=== PATIENT | female | born 2000 | race Two or more races ===

== ENCOUNTER 2025-01-06 21:26 | Observation (INO) ==
[2025-01-06 22:03] LABS: Appearance Urine Clear (Clear); Bacteria Urine Automated None Seen (None Seen); Glucose Urine UA 1+ (Negative); RBC Urine Automated 0-2 /hpf (0-2); WBC Urine Automated 0-5 /hpf (0-5)
[2025-01-06 22:09] LABS: Hematocrit (blood only) 42.2 % (37.0-47.0); Hemoglobin 13.8 g/dL (12.0-16.0); Immature Granulocytes # (auto) 0.03 K/uL (0.01-0.20); Immature Granulocytes % (auto) 0.4 %; Mean Corpuscular Hemoglobin 27.2 pg (25.0-34.0); Mean Corpuscular Volume 83.2 fL (80.0-100.0); Platelet Count 217 K/uL (130-400); RDW Standard Deviation 41.0 fL (36.4-46.3); Red Blood Count 5.07 M/uL (4.20-5.40); White Blood Count 7.36 K/ul (4.8-10.8)
[2025-01-06 22:27] LABS: Alanine Aminotransferase 13.0 U/L (7-52); Albumin Globulin Ratio 1.1 (0.9-2); Albumin Level 3.9 gm/dl (3.4-5.0); Alkaline Phosphatase 39.0 U/L (34-104); Anion Gap 8.0 (3-11); Bilirubin,Total 0.4 mg/dl (0.2-1.0); Blood Urea Nitrogen 18.0 mg/dl (6-23); Calcium 9.2 mg/dl (8.6-10.3); Carbon Dioxide 27.0 mmol/L (21-32); Chloride 103.0 mmol/L (98-107); Creatinine Clr Calc Pharmacy 48.9 ml/min; Globulin 3.5 gm/dl (2.5-4.0); Glucose 106.0 mg/dl (70-99(Fasting)); Potassium 3.2 mmol/L (3.5-5.1); Sodium 138.0 mmol/L (136-145); Total Protein 7.4 gm/dl (6.0-8.3)
[2025-01-06] MEDS: SODIUM CHLORIDE 0.9% 1,000 ML IV SCH (22:31)
[2025-01-06] MEDS: ONDANSETRON INJ 2 MG/ML 2 ML VIAL IV STA (22:35)
--- NOTE | 2025-01-06 23:20 | Emergency Department Note ---
Impression & Plan Pyelonephritis, CARINE (acute kidney injury) Admit to the [facility] ED Provider Note NAME: PATSY RAMOS AGE: 24 SEX: Female INFORMANT: Patient ED PROVIDER(S): Zunilda Hughes DO CHIEF COMPLAINT: Urinary frequency; vomiting, weakness PLAN: Disposition: Admit to the [facility] MEDICAL DECISION MAKING: This is a 24-year-old female patient who developed urinary symptoms, vomiting and weakness 48 hours ago. Patient states that she was so weak that she was unable to get out of bed to come here to the emergency department. Patient has history of UTIs. In fact, she finished amoxicillin 2 weeks ago. When her symptoms started 2 days ago, she tried taking Tylenol and Azo without any relief. She developed diarrhea, decreased appetite and significant lower abdominal cramping. Patient was treated with IV cefepime and saline along with multiple doses of Zofran to control her nausea and vomiting. Laboratory studies showed no leukocytosis or anemia. Renal function has worsened with a creatinine of 1.43. She is slightly hypokalemic with a potassium of 3.2. Patient does show signs of a urinary tract infection and CT scan shows bilateral pyelonephritis. I discussed the case with the [facility] team and they will evaluate for further inpatient care. 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 Vital Signs: reviewed and remarkable for tachycardia Chronic Medical/Social Conditions affecting care: frequent UTIs Differential Diagnosis: cystitis, pyelonephritis, obstructive uropathy, possible kidney stone Diagnostics, independently interpreted by me: Cardiac Monitoring: normal sinus rhythm at a rate of 108 Imaging studies: CT scan of the abdomen/pelvis: As per Imbro HPI: 24 year old Female arrives for evaluation of urinary frequency, vomiting and weakness. female patient who developed urinary symptoms, vomiting and weakness 48 hours ago. Patient states that she was so weak that she was unable to get out of bed to come here to the emergency department. Patient has history of UTIs. In fact, she finished amoxicillin 2 weeks ago. PAST MEDICAL HISTORY: frequent UTIs, SOCIAL HISTORY: patient is in her fifth year at [employer] MEDICATIONS: AZO ALLERGIES: none VITALS: See Below PHYSICAL EXAMINATION: HEENT: Head - normocephalic and atraumatic. Pupils are equal, round, and reactive to light. Extraocular eye muscles are intact, and sclera are anicteric. Nose - moist nasal mucosa without discharge. Mouth - moist buccal mucosa. Oropharynx is nonerythematous and there is no tonsillar exudate or edema noted. Neck: Supple; no cervical lymphadenopathy or nuchal rigidity Heart: Tachycardic rate and regular rhythm There is a normal S1 and S2 with no murmurs, clicks, or gallops appreciated. Lungs: Clear to auscultation bilaterally with no wheezes, rales, or rhonchi. Abdomen: Soft, moderate discomfort with palpation over the right and left lower quadrants of the abdomen. Some mild discomfort in the suprapubic area. There are no palpable pulsatile masses or hepatosplenomegaly. There is no guarding, rigidity, or rebound noted. Extremities: No evidence of cyanosis, clubbing, or edema. There are easily palpable peripheral pulses. Skin: warm and dry with good turgor and no rashes. 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 A complete history and physical was performed. Order was placed for continuous cardiac monitoring. The patient was in a sinus tachycardia at a rate of 108. Patient was bolused with IV normal saline solution and given a dose of IV Zofran. Patient went for CT scan of the abdomen/pelvis to rule out acute pyelonephritis. Upon returning from radiology, the patient had blood cultures obtained and was started on IV cefepime. She continued to complain of nausea and was given another dose of IV Zofran. I discussed the case with the [facility] Hospitalist and they will evaluate for further inpatient care for pyelonephritis and acute CARINE Past Med/Surg History Problem List (Updated 01/07/25 @ 18:27 by Zunilda Hughes DO) Pyelonephritis (Acute) Hypokalemia due to excessive gastrointestinal loss of potassium CARINE (acute kidney injury) (Acute) Medical History No pertinent past medical history Social History Smoking Status: Former smoker Tobacco Type: E-cigarettes / Vaping Hx Alcohol Use: No Hx Substance Use: No Preferred Language: Israeli Communication Ability: Effective Chief Financial Officer Required: No Beliefs That Will Affect Care: None Current Living Situation: Alone Current Living Situation Comment: student housing Feels Safe at Home: Yes Safety Concerns: Feels Safe At This Time Assistive Devices: None Allergies Allergies Allergy/AdvReac Type Severity Reaction Status Date / Time No Known Allergies Allergy Unverified 01/06/25 22:08 Home Meds Home Medications Medication Instructions Recorded Confirmed drospirenone 3 mg-ethinyl 0.02 - 3 tab PO DAILY 01/07/25 01/07/25 estradiol 0.02 mg tablet (Vestura (28)) Previous Rx's Medication Instructions Recorded acetaminophen 325 mg tablet 650 mg (2 x 325 mg) PO Q4H PRN 01/07/25 pain #30 tabs cefpodoxime 200 mg tablet 200 mg PO BID #18 tabs 01/07/25 ondansetron 4 mg disintegrating 4 mg PO Q8H PRN Nausea #9 tabs 01/07/25 tablet Results & Data (ED) Vital Signs Vital Signs - 24 hr 01/06/25 21:30 01/06/25 21:52 01/06/25 22:29 Temperature 37 C Temperature Source Oral Pulse Rate 110 H 89 Pulse Rate [Left Apical] Pulse Rate [Right Finger] 93 H Pulse Rate from SpO2 Sensor Pulse Rhythm Regular Pulse Rhythm [Right Finger] Regular Pulse Strength Normal Pulse Strength [Right Finger] Respiratory Rate 18 18 Respiratory Effort / Characteristics Non-Labored Spontaneous Non-Labored Respiratory Depth Normal Normal Respiratory Pattern Regular Regular Blood Pressure 127/84 Blood Pressure [Right Arm] 132/91 Blood Pressure Mean 98 Blood Pressure Mean [Right Arm] 104 Blood Pressure Position [Right Arm] Pulse Oximetry 99 95 Oxygen Delivery Method Room Air Room Air Sepsis Recent Fever Within 48 Hours No Sepsis New/Unexplained Change in Mental Status No Sepsis Action Taken by Nursing No Action Required 01/06/25 22:30 01/06/25 23:00 01/06/25 23:00 Temperature Temperature Source Pulse Rate 88 Pulse Rate [Left Apical] 91 H Pulse Rate [Right Finger] Pulse Rate from SpO2 Sensor Pulse Rhythm Pulse Rhythm [Right Finger] Pulse Strength Pulse Strength [Right Finger] Respiratory Rate 18 18 Respiratory Effort / Characteristics Non-Labored Spontaneous Respiratory Depth Normal Respiratory Pattern Regular Blood Pressure 105/84 105/84 Blood Pressure [Right Arm] 127/75 Blood Pressure Mean 91 93 Blood Pressure Mean [Right Arm] 92 Blood Pressure Position [Right Arm] Pulse Oximetry 100 100 Oxygen Delivery Method Room Air Room Air Sepsis Recent Fever Within 48 Hours Sepsis New/Unexplained Change in Mental Status Sepsis Action Taken by Nursing 01/06/25 23:45 01/07/25 00:00 01/07/25 00:30 Temperature Temperature Source Pulse Rate 75 90 91 H Pulse Rate [Left Apical] Pulse Rate [Right Finger] Pulse Rate from SpO2 Sensor 89 90 Pulse Rhythm Pulse Rhythm [Right Finger] Pulse Strength Pulse Strength [Right Finger] Respiratory Rate 18 18 16 Respiratory Effort / Characteristics Respiratory Depth Respiratory Pattern Blood Pressure 121/64 115/86 121/79 Blood Pressure [Right Arm] Blood Pressure Mean 87 95 93 Blood Pressure Mean [Right Arm] Blood Pressure Position [Right Arm] Pulse Oximetry 99 98 100 Oxygen Delivery Method Sepsis Recent Fever Within 48 Hours Sepsis New/Unexplained Change in Mental Status Sepsis Action Taken by Nursing 01/07/25 01:00 01/07/25 01:00 Temperature Temperature Source Pulse Rate 90 Pulse Rate [Left Apical] Pulse Rate [Right Finger] 85 Pulse Rate from SpO2 Sensor 86 Pulse Rhythm Pulse Rhythm [Right Finger] Regular Pulse Strength Pulse Strength [Right Finger] Normal Respiratory Rate 19 20 Respiratory Effort / Characteristics Non-Labored Spontaneous Respiratory Depth Normal Respiratory Pattern Regular Blood Pressure 107/65 Blood Pressure [Right Arm] 107/65 Blood Pressure Mean 79 Blood Pressure Mean [Right Arm] 79 Blood Pressure Position [Right Arm] Lying Pulse Oximetry 98 97 Oxygen Delivery Method Room Air Sepsis Recent Fever Within 48 Hours Sepsis New/Unexplained Change in Mental Status Sepsis Action Taken by Nursing Laboratory Data 01/06/25 21:56 01/07/25 07:05 Lab Results 01/06/25 01/06/25 01/07/25 Range/Units 21:44 21:56 01:29 WBC 7.36 (4.8-10.8) K/ul RBC 5.07 (4.20-5.40) M/uL Hgb 13.8 (12.0-16.0) g/dL Hct 42.2 (37.0-47.0) % MCV 83.2 (80.0-100.0) fL MCH 27.2 (25.0-34.0) pg MCHC 32.7 (32.0-36.0) g/dL RDW Std Deviation 41.0 (36.4-46.3) fL RDW Coeff of Kaylee 13.5 (11.5-14.5) % Plt Count 217 (130-400) K/uL MPV 11.7 (9.4-12.4) fL Immature Gran % (Auto) 0.4 % Neut % (Auto) 70.1 % Lymph % (Auto) 21.1 % [place] % (Auto) 7.6 % Eos % (Auto) 0.4 % Baso % (Auto) 0.4 % Neut # (Auto) 5.16 (1.40-6.50) K/uL Lymph # (Auto) 1.55 (1.20-3.40) K/uL [place] # (Auto) 0.56 (0.11-0.59) K/uL Eos # (Auto) 0.03 (0.00-0.50) K/uL Baso # (Auto) 0.03 (0.00-0.20) K/uL Immature Gran # (Auto) 0.03 (0.01-0.20) K/uL Sodium 138 (136-145) mmol/L Potassium 3.2 L (3.5-5.1) mmol/L Chloride 103 (98-107) mmol/L Carbon Dioxide 27 (21-32) mmol/L Anion Gap 8 (3-11) BUN 18 (6-23) mg/dl Creatinine 1.43 H (0.6-1.2) mg/dl Est Cr Clr Drug Dosing 48.9 ml/min eGFR 52.85 BUN/Creatinine Ratio 12.6 (10-20) Glucose 106 H (70-99(Fasting)) mg/dl Lactate 0.9 (0.4-2.0) mmol/L Calcium 9.2 (8.6-10.3) mg/dl Magnesium 2.1 (1.7-2.4) mg/dl Total Bilirubin 0.4 (0.2-1.0) mg/dl AST 17 (13-39) U/L ALT 13 (7-52) U/L Alkaline Phosphatase 39 (34-104) U/L Total Protein 7.4 (6.0-8.3) gm/dl Albumin 3.9 (3.4-5.0) gm/dl Globulin 3.5 (2.5-4.0) gm/dl Albumin/Globulin Ratio 1.1 (0.9-2) Procalcitonin 0.14 (0-0.5) ng/ml Urine Color Dark Yellow Urine Appearance Clear (Clear) Urine pH 5.5 (4.5-7.5) Ur Specific Lipan 1.013 (1.000-1.030) Urine Protein Trace H (Negative) Urine Glucose (UA) 1+ H (Negative) Urine Ketones Negative (Negative) Urine Blood Negative (Negative) Urine Nitrite Positive A (Negative) Urine Bilirubin Negative (Negative) Urine Urobilinogen Negative (Negative) Ur Leukocyte Esterase Negative (Negative) Urine WBC (Auto) 0-5 (0-5) /hpf Urine RBC (Auto) 0-2 (0-2) /hpf U Hyaline Cast (Auto) 3-5 H (0-2) /lpf U Epithel Cells (Auto) 6-10 H (0-2) /hpf Urine Bacteria (Auto) None Seen (None Seen) Urine Test Negative (Negative) Urine Comment Administered Medications Ceftriaxone Sodium (Rocephin) 2,000 mg in 50 mls @ 100 mls/hr IV Q24H OMARI Stop: 01/14/25 12:59 Last Infusion: 01/07/25 13:04 Dose: Infused Documented By: Admin: 01/07/25 12:34 Dose: 100 mls/hr Documented By: austin Parenteral Electrolytes (Plasma-Lyte A Ph 7.4) 1,000 mls @ 125 mls/hr IV .Q8H OMARI Stop: 01/07/25 20:16 Last Admin: 01/07/25 14:07 Dose: 125 mls/hr Documented By: austin Infusion: 01/07/25 14:00 Dose: Infused Documented By: austin Admin: 01/07/25 06:00 Dose: 125 mls/hr Documented By: DAYAN Miscellaneous (Order Awaiting Action) 1 each N/A QS OMARI Stop: 02/06/25 07:59 Last Admin: 01/07/25 15:05 Dose: Not Given Documented By: Admin: 01/07/25 08:02 Dose: Not Given Documented By: ANDREW Morphine Sulfate (Morphine Sulfate 4 Mg/Ml 1 Ml Carp\Vial) 4 mg IV Q6H PRN PRN Reason: Severe Pain (Scale 7, 8, 9,10) Stop: 01/21/25 04:16 Last Admin: 01/07/25 04:49 Dose: 4 mg Documented By: DAYAN Discontinued Medications Sodium Chloride (Nss) 1,000 mls @ 999 mls/hr IV .Q1H1M OMARI Stop: 01/07/25 00:30 Last Infusion: 01/07/25 00:45 Dose: Infused Documented By: Admin: 01/06/25 23:44 Dose: 999 mls/hr Documented By: Infusion: 01/06/25 23:32 Dose: Infused Documented By: Admin: 01/06/25 22:31 Dose: 999 mls/hr Documented By: JC Sodium Chloride (Nss) 500 mls @ 125 mls/hr IV .Q4H OMARI Stop: 01/07/25 05:29 Last Infusion: 01/07/25 05:49 Dose: Infused Documented By: Admin: 01/07/25 01:35 Dose: 125 mls/hr Documented By: NAW Cefepime HCl (Maxipime 2000mg) 2,000 mg in 20 mls @ 5 mls/min IV NOW STA; Protocol Stop: 01/07/25 01:23 Last Admin: 01/07/25 01:34 Dose: 5 mls/min Documented By: NAW Potassium Chloride (K Claudio / Wtr) 10 meq in 100 mls @ 100 mls/hr IV Q1H OMARI Stop: 01/07/25 05:44 Last Infusion: 01/07/25 06:49 Dose: Infused Documented By: austin Admin: 01/07/25 05:49 Dose: 100 mls/hr Documented By: Infusion: 01/07/25 05:46 Dose: Infused Documented By: Admin: 01/07/25 04:46 Dose: 100 mls/hr Documented By: Infusion: 01/07/25 04:34 Dose: Infused Documented By: Admin: 01/07/25 03:34 Dose: 100 mls/hr Documented By: ALEKSANDAR Acetaminophen (Ofirmev) 1,000 mg in 100 mls @ 400 mls/hr IV NOW STA Stop: 01/07/25 03:00 Last Infusion: 01/07/25 03:33 Dose: Infused Documented By: Admin: 01/07/25 02:52 Dose: 400 mls/hr Documented By: Ondansetron HCl (Ondansetron Inj 2 Mg/Ml 2 Ml Vial) 4 mg IV NOW STA Stop: 01/06/25 22:32 Last Admin: 01/06/25 22:35 Dose: 4 mg Documented By: DM Ondansetron HCl (Ondansetron Inj 2 Mg/Ml 2 Ml Vial) 4 mg IV NOW STA Stop: 01/07/25 02:10 Last Admin: 01/07/25 02:14 Dose: 4 mg Documented By: Discharge Plan Visit Data Chief Complaint: Illness Stated Complaint: WEAKNESS,N/V,DIZZINESS,ABD PAINS ED Provider: Zunilda Hughes Discharge Problem: Pyelonephritis, CARINE (acute kidney injury) Patient Disposition: Admitted As Inpatient Condition: Serious Discharge Instructions Interventions: ED Discharge Assessment Last Done: 01/07/25 03:58
--- NOTE | 2025-01-07 01:07 | CT Scan Report ---
Exam(s): CT ABDOMEN + PELVIS Without Contrast EXAM: CT Abdomen and Pelvis Without Intravenous Contrast CLINICAL HISTORY: eval for stone or pyelo. OTHER: Other Notes: EVAL FOR STONE TECHNIQUE: Axial computed tomography images of the abdomen and pelvis without intravenous contrast. CTDI is 7 mGy and DLP is 320.53 mGy-cm. Automated exposure control was utilized for the study. A dose lowering technique was utilized adhering to the principles of ALARA. COMPARISON: No relevant prior studies available. FINDINGS: Limitations: There is respiratory artifact, which degrades image quality on multiple image slices. Lung bases: Unremarkable. No mass. No consolidation. ABDOMEN: Liver: Unremarkable. Gallbladder and bile ducts: Unremarkable. No calcified stones. No ductal dilation. Pancreas: The pancreas is grossly unremarkable, accounting for respiratory artifact. No ductal dilation. Spleen: Unremarkable. No splenomegaly. Adrenals: Unremarkable. No mass. Kidneys and ureters: There is new bilateral perinephric fat stranding noted, left slightly greater than right. No hydronephrosis or obstructive ureteral stones. No ureteral stones. Stomach and bowel: No evidence for bowel obstruction. Evaluation of the bowel mucosa is limited without contrast and respiratory artifact. Mild stool burden. PELVIS: Appendix: No findings to suggest acute appendicitis. Bladder: The bladder is [id number] distended. No bladder stones or bladder wall thickening. Reproductive: Unremarkable as visualized. ABDOMEN and PELVIS: Intraperitoneal space: Unremarkable. No free air. No significant fluid collection. Bones/joints: No acute osseous abnormality. No abnormal alignment. Soft tissues: Unremarkable. Vasculature: Unremarkable. No abdominal aortic aneurysm. Lymph nodes: Unremarkable. No enlarged lymph nodes. IMPRESSION: There is new bilateral perinephric fat stranding noted, left slightly greater than right. No hydronephrosis or obstructive ureteral stones. The findings are suspicious for pyelonephritis. Please correlate with clinical and urinalysis findings. Electronically signed by: Magdiel Peck MD 01/07/25 01:06 AM
[2025-01-07] MEDS: CEFEPIME 2000MG 2,000 MG/20 ML SYR IV STA (01:34)
[2025-01-07] MEDS: SODIUM CHLORIDE 0.9% 500 ML IV SCH (01:35)
[2025-01-07] MEDS: ONDANSETRON INJ 2 MG/ML 2 ML VIAL IV STA (02:14)
--- NOTE | 2025-01-07 02:43 | History & Physical Report ---
Date of Service January 07, 2025 Assessment & Plan (1) Pyelonephritis: (2) Nausea & vomiting: (3) CARINE (acute kidney injury): (4) Hypokalemia due to excessive gastrointestinal loss of potassium: Plan Patient is a 24-year-old female with a past medical history of recurrent UTIs. She presented due to 2 days of increasing urinary frequency, dysuria, weakness, nausea, vomiting, poor appetite, bilateral lower abdominal and flank pain, and watery diarrhea found to have bilateral pyelonephritis and an CARINE. Patient was treated for UTI with amoxicillin starting 12/15 recently. #bilateral pyelonephritis noted on abdomen and pelvis CT. UA positive for n itrates, 3-5 hyaline cast, no bacteria seen. Nonseptic presentationno leukocytosis, VSS, lactate negative, procalcitonin negative. Previous cultures have grown E. coli resistant to ampicillin, quinolones, and Bactrim Started on cefepime in the ED, transition to Rocephin pain control with Tylenol as needed, morphine 2/4 mg IV for breakthrough pain Avoid NSAIDs with CARINE - Zofran prn - consult urology given patient reporting ~ 6 UTIs/yr and has not yet established care with urology - follow urine and blood cultures - trend CBC #CARINE/hypokalemia - likely 2/2 dehydration, GI losses, and acute infection above. Cr 0.79 -> 1.43, K+ 3.2. - given 2L NSS bolus in ED + NSS @ 125 ml/hr x 500 mL - continue fluid resuscitation with plasmalyte @ 125 ml/hr x2L - 3 bags k rider ordered - treat infection - trend BMP #diarrhea - reports watery x1 day after recent amoxicillin use. - stool cultures including c diff ordered VTE ppx: SCDs, low risk Dispo: med surg, obs Admission and Anticipated Discharge Date Admission Date: 01/07/25 History of Present Illness Chief Complaint: illness Primary Care Provider: [facility] Patient is a 24-year-old female with a past medical history of recurrent UTIs. She presented due to 2 days of increasing urinary frequency, dysuria, weakness, nausea, vomiting, poor appetite, bilateral lower abdominal and flank pain, and watery diarrhea found to have bilateral pyelonephritis and an CARINE. Patient was treated for UTI with amoxicillin starting 12/15 recently. Patient seen at bedside. She stated she used to have approximately 1-2 UTIs per year when she was a child and then when she came to college and became sexually active she now develops approximately 6/year. Her most recent was treated on 12/15 with amoxicillin for 7 days which she stated she took the full course of. Previous cultures have grown E. coli resistant to ampicillin, quinolones, and Bactrim. Patient stated since Saturday she had increase in urinary frequency and burning so she thought this was a regular UTI and took Azo and Tylenol. She then took a nap and woke up with significant vomiting and dry heaving which she stated was orange in color from the Azo however denies any hematemesis. She then developed significant weakness and poor appetite unable to tolerate much p.o. intake. She had bilateral lower abdominal cramping across her bladder region which extended up to bilateral flanks. Pain is currently 7/10 at bedside. She also endorses watery diarrhea that began today, denies any hematochezia. She felt like she was warm earlier however has been afebrile in the ED. She denies nicotine or alcohol use. Her only home medication is her control. Allergies Allergy/AdvReac Type Severity Reaction Status Date / Time No Known Allergies Allergy Unverified 01/06/25 22:08 Home Medications Medication Instructions Recorded Confirmed Type acetaminophen 325 mg tablet 650 mg (2 x 325 mg) PO Q4H PRN 01/07/25 Rx pain #30 tabs cefpodoxime 200 mg tablet 200 mg PO BID #18 tabs 01/07/25 Rx drospirenone 3 mg-ethinyl 0.02 - 3 tab PO DAILY 01/07/25 01/07/25 History estradiol 0.02 mg tablet (Vestura (28)) ondansetron 4 mg disintegrating 4 mg PO Q8H PRN Nausea #9 tabs 01/07/25 Rx tablet Past Med/Surg History Problem List (Updated 01/07/25 @ 18:27 by Zunilda Hughes DO) Pyelonephritis (Acute) Hypokalemia due to excessive gastrointestinal loss of potassium CARINE (acute kidney injury) (Acute) Medical History No pertinent past medical history Social History Smoking Status: Former smoker Tobacco Type: E-cigarettes / Vaping Hx Alcohol Use: No Hx Substance Use: No Preferred Language: Portuguese Communication Ability: Effective Bill Distributor Required: No Beliefs That Will Affect Care: None Current Living Situation: Alone Current Living Situation Comment: student housing Feels Safe at Home: Yes Assistive Devices: None Review of Systems Review of Systems: see HPI Physical Exam Physical Exam: The patient is awake, alert and oriented 3, well developed and well nourished, normocephalic and atraumatic, in no acute distress. Non-toxic appearing. HEENT- EOMI, mucous membranes moist. Hearing grossly intact. Heart-normal S1 and S2. No murmurs, rubs or gallops. Lungs-clear bilaterally, no respiratory distress, no accessory muscle use. Abdomen-normal bowel sounds and soft. No ascites noted. Tender to mid lower abdomen and bl flanks. Extremities- no clubbing, cyanosis, or edema. Rheumatologic-normal range of motion. Psychiatric-normal affect. Results & Data Results & Data Vital Signs (Past 12 Hours) Vital Signs Temp Pulse Pulse Pulse Resp BP BP 01/07/25 01:00 85 20 107/65 01/07/25 01:00 90 19 107/65 01/07/25 00:30 91 H 16 121/79 01/07/25 00:00 90 18 115/86 01/06/25 23:45 75 18 121/64 01/06/25 23:00 105/84 01/06/25 23:00 88 18 105/84 01/06/25 22:30 91 H 18 127/75 01/06/25 22:29 89 01/06/25 21:52 93 H 18 132/91 01/06/25 21:30 37 C 110 H 18 127/84 Pulse Ox O2 Del Method 01/07/25 01:00 97 Room Air 01/07/25 01:00 98 01/07/25 00:30 100 01/07/25 00:00 98 01/06/25 23:45 99 01/06/25 23:00 01/06/25 23:00 100 Room Air 01/06/25 22:30 100 Room Air 01/06/25 22:29 01/06/25 21:52 95 Room Air 01/06/25 21:30 99 Room Air Laboratory Results Reviewed CBC, CMP, lactate, procalcitonin, UA Ordered magnesium Diagnostic Findings reviewed AP CT Medications Administered 802 L NSS bolus, NSS at 125 mL/hour x 500 mL, Zofran x 2, cefepime 2G IV Code Status & VTE Plan Code Status full VTE Prophylaxis Plan VTE Prophylaxis will be ordered: Yes Supervising Physician Co-Signing Physician Notes Patient seen and examined, chart reviewed, case discussed with ALMA Jimenez and I agree with the assessment and plan as above. Patient is a 24yo female presenting with recurrent UTI. She has had multiple UTIs in the past. Has had cultures with some resistant bacteria (10/2023 E. coli with Amp/Sulbact/Cipro/Levaquin/Bactrim resistance). Patient reports keeping hydrated, has tried cranberry products, does try to urinate after sex. However, with recurrent UTIs. Has been mentioned to her that her symptoms may be secondary to interstitial cystitis? Has never seen Urology or had a cystoscopy performed On exam she is afebrile, HD stable, resting comfortably, non-toxic in appearance +Suprapubic discomfort, no CVA tenderness Remainder of exam is unremarkable Labs and images reviewed Assessment/Plan -Await urine culture -Ceftriaxone for now -Urology consultation appreciated - to establish care, possible cystoscopy in the future to assess for anatomic abnormalities, interstitial cystitis or other reasons for recurrent UTIs -Remainder as above PG Care Time/CCT Total # of Minutes Spent Total Time Spent with Patient: Total time spent is greater than 50% in coordination of care (as documented) at patient's floor/unit and/or counseling patient: Coding Level of Care Code 99335 INT INP/OBS CARE 3/75MIN Diagnoses Pyelonephritis N12 Nausea & vomiting R11.2 CARINE (acute kidney injury) N17.9 Hypokalemia due to excessive gastrointestinal loss of potassium E87.6
[2025-01-07] MEDS: ACETAMINOPHEN 1,000 MG/100 ML VIAL IV STA (02:52)
[2025-01-07 03:01] LABS: Magnesium 2.1 mg/dl (1.7-2.4)
[2025-01-07] MEDS: POTASSIUM CHLORIDE / WTR 10 MEQ/100 ML PLCT IV SCH (03:34)
[2025-01-07 04:00] VITALS: O2SAT 99
[2025-01-07] MEDS ORDERED: MoRPHine SULFATE 2 MG/ML CARP IV PRN (04:17)
[2025-01-07] MEDS ORDERED: ONDANSETRON INJ 2 MG/ML 2 ML VIAL IV PRN (04:17)
[2025-01-07] MEDS ORDERED: MELATONIN 3 MG TAB PO PRN (04:17)
[2025-01-07] MEDS ORDERED: DOCUSATE SODIUM 100 MG CAP PO PRN (04:17)
[2025-01-07] MEDS ORDERED: ACETAMINOPHEN 325 MG TAB PO PRN (04:17)
[2025-01-07] MEDS: MoRPHine SULFATE 4 MG/ML 1 ML CARP\\VIAL IV PRN (04:49)
--- NOTE | 2025-01-07 05:07 | Urology Consultation ---
Date of Consultation January 07, 2025 Assessment & Plan (1) Pyelonephritis: Patient has been admitted on the hospitalist service. Urologic recommendations are as follows: Appears of the patient clinically and radiographically may have evidence of pyelonephritis Patient has been started on antibiotics in the form of Rocephin. Appropriate cultures have been sent and can be used to tailor further antibiotic therapy as cultures become available I suspect the patient's acute kidney injury is due to an element of dehydration from poor oral intake and will hopefully resolve with hydration with intravenous fluids There is no obvious obstruction or anatomic abnormalities to explain the patient's recurrent urinary tract infections on her available imaging. I did discuss with the patient that may be beneficial to establish care with urology locally and consideration can be given to performing cystoscopy at some point to see if she has any anatomic abnormalities or other identifiable factors that are contributing to her recurrent urinary tract infections (I do suspect that this procedure can likely be completed as an outpatient) Would recommend monitoring the patient postvoid residuals to ensure she is not retaining urine Additional recommendations are forthcoming based on her clinical course as it unfolds History of Present Illness Reason for Consultation: Recurrent urinary tract infections Attending Physician: Amarilis Ortiz DO History of Present Illness 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 The patient's current presentation she notes she has had 2 days of urinary frequency along with dysuria. She reports that she has had nausea and vomiting and poor oral intake. She also notes that she has had bilateral flank pain. To the best of her knowledge she has never had any kidney stones or passed any kidney stones. She does report some intermittent hematuria from time to time. The patient does note that she has had multiple urinary tract infections over the past year. She says that she has seen an [employer] specialist who informed the patient she may have interstitial cystitis. She notes that she has never received a urologist. Since arrival to the hospital the patient has had labs and imaging which I independently reviewed. A CT scan of the abdomen pelvis showed the patient had bilateral perinephric fat stranding which appeared to be greater on the right. There is no hydronephrosis or obstructive kidney stones noted. Interpreting radiologist felt that this likely represented a pyelonephritis. CBC revealed white blood cell count, hemoglobin, hematocrit, and platelet count were all normal. Chemistry profile showed sodium is 138 with a potassium of 3.2. BUN and creatinine were 18 and 1.4. (Review of records show that creatinine typically runs within the normal range). Urinalysis was positive for nitrites but did not have any bacteria, leukocyte esterase, or pyuria. test was negative. Past CT scans that the patient had were reviewed. She did have a CT scan of the abdomen pelvis in October 2024 and January 2024. This did not reveal any obvious anatomic abnormalities of the patient's kidneys. She also had a transvaginal and pelvic ultrasound in October 2022 that were noted to be normal. Patient was passed urinary cultures that were available reviewed. Patient did have an E. coli urinary tract infection in October 2023, and also December 2022these organisms were pansensitive. At the time of my interview she was resting comfortably in bed and she was in no distress. Allergies Allergy/AdvReac Type Severity Reaction Status Date / Time No Known Allergies Allergy Unverified 01/06/25 22:08 Home Medications Medication Instructions Recorded Confirmed Type drospirenone 3 mg-ethinyl 0.02 - 3 tab PO DAILY 01/07/25 01/07/25 History estradiol 0.02 mg tablet (Vestura (28)) Patient History Medical History No pertinent past medical history Social History Smoking Status: Never smoker Tobacco Type: E-cigarettes / Vaping Preferred Language: Nauruan Feels Safe at Home: Yes Review of Systems 2 Review of Systems: All systems reviewed & are unremarkable except as noted in HPI & below Physical Exam Constitutional: WD/WN, vitals as above Eyes: no conjunctival abnormality ENMT: Ears: no hearing impairment Neck: trachea midline Respiratory: normal respiratory effort; no respiratory distress and no labored breathing Cardiovascular: Rate/Rhythm: regular rate and regular rhythm Gastrointestinal (Abdomen): At the time my exam abdomen was soft without distention. There is no rebound tenderness or guarding or signs of peritonitis Musculoskeletal: No calf tenderness Skin: no rashes Neurologic: moves all extremities Psychiatric: A+Ox3, euthymic affect Genitourinary: Patient has bilateral CVA tenderness noted with percussion which appears to be greatest on the right Results & Data Vital Signs (Past 12 Hours) Vital Signs Temp Pulse Pulse Pulse Resp BP BP 01/07/25 03:58 75 16 101/63 01/07/25 01:00 85 20 107/65 01/07/25 01:00 90 19 107/65 01/07/25 00:30 91 H 16 121/79 01/07/25 00:00 90 18 115/86 01/06/25 23:45 75 18 121/64 01/06/25 23:00 105/84 01/06/25 23:00 88 18 105/84 01/06/25 22:30 91 H 18 127/75 01/06/25 22:29 89 01/06/25 21:52 93 H 18 132/91 01/06/25 21:30 37 C 110 H 18 127/84 Pulse Ox O2 Del Method 01/07/25 03:58 99 Room Air 01/07/25 01:00 97 Room Air 01/07/25 01:00 98 01/07/25 00:30 100 01/07/25 00:00 98 01/06/25 23:45 99 01/06/25 23:00 01/06/25 23:00 100 Room Air 01/06/25 22:30 100 Room Air 01/06/25 22:29 01/06/25 21:52 95 Room Air 01/06/25 21:30 99 Room Air PG Care Time/CCT Total # of Minutes Spent Total Time Spent with Patient: Total time spent is greater than 50% in coordination of care (as documented) at patient's floor/unit and/or counseling patient: Coding Level of Care Code 04729 IN/OBS CONSULT LVL 5,80M Diagnoses Pyelonephritis N12
[2025-01-07] MEDS: PLASMA-LYTE A 1,000 ML IV SCH (06:00)
[2025-01-07 07:53] LABS: Magnesium 1.8 mg/dl (1.7-2.4)
[2025-01-07 08:03] VITALS: RESP 16
[2025-01-07 09:04] LABS: Anion Gap 7.0 (3-11); Blood Urea Nitrogen 12.0 mg/dl (6-23); Calcium 7.8 mg/dl (8.6-10.3); Carbon Dioxide 21.0 mmol/L (21-32); Chloride 112.0 mmol/L (98-107); Creatinine Clr Calc Pharmacy 71.3 ml/min; Glucose 102.0 mg/dl (70-99(Fasting)); Potassium 4.2 mmol/L (3.5-5.1); Sodium 140.0 mmol/L (136-145)
--- NOTE | 2025-01-07 12:07 | Urology Progress Note ---
Date of Service January 07, 2025 Assessment & Plan (1) Pyelonephritis: Plan: Follow-up of flank pain, suspected UTI/pyelonephritis Patient afebrile and hemodynamically stable Labs reviewedcreatinine improved to 1.0, no leukocytosis Urinalysis showed positive nitrates, but no leukocyte esterase, pyuria or bacteria Urine and blood cultures are pending Subjectively she is feeling better, but continues to have some intermittent bladder and flank discomfort Recommend continue broad-spectrum antibiotics and narrow per sensitivity data when available No acute intervention Continue supportive care and antibiotics Will arrange outpatient follow-up with our service regarding recurrent UTIs/symptoms will sign off, please contact our service with any additional questions or concerns Admission and Anticipated Discharge Date Admission Date: January 07, 2025 Subjective Patient seen and examined at bedside. She is awake and resting in bed. Continues to have intermittent bladder and flank discomfort, but improved since arrival. No fever or chills. Dysuria has largely resolved, no hematuria. No nausea or vomiting at present. She reports frequent UTIs since approximately January. She reports around that time, she had an IUD removed that had migrated. She reports frequent UTIs/UTI symptoms since then, sometimes with positive cultures and sometimes negative. She has been treated through [facility]. Review of Systems Constitutional: as per Subjective / HPI Genitourinary: as per Subjective / HPI Physical Exam Constitutional: well developed and well nourished; no acute distress Respiratory: normal respiratory effort; no respiratory distress and no labored breathing Gastrointestinal (Abdomen): Inspection/Auscultation: abdomen normal to inspection Musculoskeletal: Head/Neck/Chest: normocephalic Neurologic: moves all extremities and awake Psychiatric: Orientation: alert and oriented x 3 Results & Data Vital Signs (Past 12 Hours) Vital Signs Temp Pulse Pulse Resp BP BP Pulse Ox 01/07/25 08:02 36.5 C 67 16 100/62 99 01/07/25 04:15 36.7 C 68 18 110/72 99 01/07/25 03:58 75 16 101/63 99 01/07/25 01:00 85 20 107/65 97 01/07/25 01:00 90 19 107/65 98 01/07/25 00:30 91 H 16 121/79 100 O2 Del Method 01/07/25 08:02 Room Air 01/07/25 04:15 Room Air 01/07/25 03:58 Room Air 01/07/25 01:00 Room Air 01/07/25 01:00 01/07/25 00:30 PG Care Time/CCT Total # of Minutes Spent Total Time Spent with Patient: Total time spent is greater than 50% in coordination of care (as documented) at patient's floor/unit and/or counseling patient: Coding Level of Care Code None Diagnoses Pyelonephritis N12
[2025-01-07] MEDS: cefTRIAXone SODIUM 2,000 MG/50 ML BAG IV SCH (12:34)
--- NOTE | 2025-01-07 14:09 | History & Physical Bridge Note ---
Date of Service January 07, 2025 History & Physical Bridge Note I have examined the patient, reviewed the History & Physical and in the interval since the performance of the History & Physical I have noted the following changes of clinical significance: Patient feeling better, no nausea or vomiting, was able to eat regular food for lunch. Still having some suprapubic abdominal pain sometimes that radiates to the right flank. She is making urine. No fevers. Urology saw her and I reviewed the consult. P latia to follow-up with urology as an outpatient likely for cystoscopy. Patient has no further diarrhea. Telemetry is normal sinus rhythm with rates in 70s Vitals reviewed Gen: AAOx3, NAD HEENT: Anicteric sclerae, EOMI CV: RRR no mgr nl S1S2 Pulm: CTAB no wcr Abd: +BS soft mild TTP in the suprapubic region and right flank ND no masses or hernias Ext: No edema Skin: No rashes, warm/dry Neuro: Full strength throughout CBC, BMP, LFTs, procalcitonin, magnesium, urine culture, blood cultures reviewed 24-year-old female with a history of recurrent UTI, here with acute kidney injury and acute pyelonephritis. With hypokalemia. Improving, afebrile, awaiting blood and urine culture results - Continue ceftriaxone, follow urine and blood cultures - Replace KCl with 40 mEq p.o. x 1 and follow BMP and magnesium in the a.m. - Plan for outpatient follow-up with urology - Stable for downgrade off telemetry
[2025-01-07 15:23] VITALS: BP 109/71; TEMP 98.1
[2025-01-07 18:07] VITALS: PULSE 67
--- NOTE | 2025-01-07 18:07 | Discharge Summary ---
Discharge Summary Date of Service January 07, 2025 Principal Dx & Hospital Course #1 = Principal Diagnosis (1) Pyelonephritis: (2) Nausea & vomiting: (3) CARINE (acute kidney injury): (4) Hypokalemia due to excessive gastrointestinal loss of potassium: Plan Patient is a 24-year-old female with a past medical history of recurrent UTIs. She presented due to 2 days of increasing urinary frequency, dysuria, weakness, nausea, vomiting, poor appetite, bilateral lower abdominal and flank pain, and watery diarrhea found to have bilateral pyelonephritis and an CARINE. Patient was treated for UTI with amoxicillin starting 12/15 recently. #bilateral pyelonephritis noted on abdomen and pelvis CT. UA positive for nitrates, 3-5 hyaline cast, no bacteria seen. Nonseptic presentationno leukocytosis, VSS, lactate negative, procalcitonin negative. Previous cultures have grown E. coli resistant to ampicillin, quinolones, and Bactrim Started on cefepime in the ED, transitioned to Rocephin-received 1 dose of this - Her pain, nausea/vomiting were much improved after IV fluids and antibiotics. She was able to tolerate regular diet. Urology saw her and recommended outpatient follow-up to evaluate for structural causes of recurrent UTI. Her blood cultures had no growth to date and her urine culture was still pending at the time of discharge. Patient was anxious for discharge as she is traveling out of state tomorrow for the holidays and requested discharge. As she was stable, clinically improved on ceftriaxone, she will be sent home with cefpodoxime to finish out a 10-day course of antibiotics She will be contacted if her urine culture grows out a resistant organism. She was instructed to go back to the hospital if she develops worsening pain, nausea/vomiting, or fevers. Follow-up with urology as an outpatient within 1 month She was given a prescription for Zofran as needed for nausea and can take Tylenol as needed for pain after discharge #CARINE/hypokalemia - likely 2/2 dehydration, GI losses, and acute infection above. Cr 0.79 -> 1.43, K+ 3.2. She was given IV fluids and her creatinine improved to 1.0, potassium normalized #diarrhea - reports watery x1 day after recent amoxicillin use. This resolved and her stool PCR was negative VTE ppx: SCDs, low risk Dispo: Stable for discharge to home Notes For Next Care Provider Follow-up with urology as an outpatient Medication Changes From Visit See medication list Admission HPI Per Admitting Provider Patient is a 24-year-old female with a past medical history of recurrent UTIs. She presented due to 2 days of increasing urinary frequency, dysuria, weakness, nausea, vomiting, poor appetite, bilateral lower abdominal and flank pain, and watery diarrhea found to have bilateral pyelonephritis and an CARINE. Patient was treated for UTI with amoxicillin starting 12/15 recently. Patient seen at bedside. She stated she used to have approximately 1-2 UTIs per year when she was a child and then when she came to college and became sexually active she now develops approximately 6/year. Her most recent was treated on 12/15 with amoxicillin for 7 days which she stated she took the full course of. Previous cultures have grown E. coli resistant to ampicillin, quinolones, and Bactrim. Patient stated since Saturday she had increase in urinary frequency and burning so she thought this was a regular UTI and took Azo and Tylenol. She then took a nap and woke up with significant vomiting and dry heaving which she stated was orange in color from the Azo however denies any hematemesis. She then developed significant weakness and poor appetite unable to tolerate much p.o. intake. She had bilateral lower abdominal cramping across her bladder region which extended up to bilateral flanks. Pain is currently 7/10 at bedside. She also endorses watery diarrhea that began today, denies any hematochezia. She felt like she was warm earlier however has been afebrile in the ED. She denies nicotine or alcohol use. Her only home medication is her control. Discharge Exam Constitutional WD/WN, vitals as above Respiratory normal respiratory effort, lungs clear to auscultation Cardiovascular RRR, no murmur, no edema Gastrointestinal (Abdomen) Inspection/Auscultation: abdomen normal to inspection and normal bowel sounds; abdomen not distended Percussion/Palpation: + abdomen tender (Mild in suprapubic area and right flank without guarding or rebound) and abdomen soft; no guarding Psychiatric A+Ox3, euthymic affect Discharge Plan Discharge Items Patient Disposition: Home - Self-Care Reason For Visit: BL PYLEONEPHRITIS Discharge Diagnosis: Acute pyelonephritis Acute kidney injury Hypokalemia Activity: Resume your previous activity Non-emergency contact: Primary Care Provider Call non-emergency contact if: you have any medication questions, your symptoms worsen, your pain is not controlled, your pain is worsening, you have a fever and your temperature is above 101 Follow-up/Referrals: Julio Duncan DO [Physician] - (Dr. Duncan's office should be contacting you with your appointment date and time) [facility] [Primary Care Provider] - (Follow-up within 1-2 weeks) Diet: Regular Addtl Attending Provider Instructions: Please take the antibiotic called cefpodoxime twice a day for 9 more days. You can take Zofran as needed for nausea, and acetaminophen as needed for pain. If your symptoms worsen such as fever, abdominal pain or back pain worsening, or intractable nausea or vomiting, please call your doctor or return to the hospital. As your urine culture is not finalized before discharge, there is a chance that you may grow out a bacteria that is resistant to the antibiotic that you are prescribed. If this happens, you will be contacted with the results. Please follow-up with the urologist as planned-their office should be contacting you with your appointment date and time. It was a pleasure taking care of you! If you have any questions about your care before your hospital follow-up visit with your primary care provider, please call [phone] and ask to be transferred to the [facility] Medicine office. Sincerely, Yadi Dominguez M.D. Pending Studies at Discharge: Yes ( urine culture and blood cultures) Stand-Alone Forms: [facility], Work/School Release Medications and DC Order Prescriptions: New ondansetron 4 mg tablet,disintegrating 4 mg PO Q8H PRN (Reason: Nausea) Qty: 9 0RF cefpodoxime 200 mg tablet 200 mg PO BID Qty: 18 0RF Rx Instructions: must administer with a meal/food acetaminophen 325 mg Tablet 650 mg PO Q4H PRN (Reason: pain) Qty: 30 0RF Rx Instructions: [id number] Continued drospirenone-ethinyl estradiol [Vestura (28)] 3-0.02 mg tablet 0.02 - 3 tab PO DAILY Discharge Orders: Discharge Order (Routine); Ordered 01/07/25 Ordered By: Yadi Dominguez Admission Data Admit Date/Time: 01/07/25 02:49 Attending Provider: Yadi Dominguez Admit Provider: Amarilis Ortiz Primary Care Provider: [facility] Other Providers: Amarilis Ortiz; Julio Duncan Hospital Stay Data Consultations 01/07/25 02:10 ED Decision to Admit Stat 01/07/25 04:17 Consult Urology Routine Diagnostic Imagining Performed 01/06/25 23:03 CT Abd and Pelvis [CT abd pelvis wo con] Stat Pending Results Patient Have Any Pending Studies at Discharge: Yes ( urine culture and blood cultures) Discharge Instructions Given to Patient (Per Discharging Provider) Please take the antibiotic called cefpodoxime twice a day for 9 more days. You can take Zofran as needed for nausea, and acetaminophen as needed for pain. If your symptoms worsen such as fever, abdominal pain or back pain worsening, or intractable nausea or vomiting, please call your doctor or return to the hospital. As your urine culture is not finalized before discharge, there is a chance that you may grow out a bacteria that is resistant to the antibiotic that you are prescribed. If this happens, you will be contacted with the results. Please follow-up with the urologist as planned-their office should be contacting you with your appointment date and time. It was a pleasure taking care of you! If you have any questions about your care before your hospital follow-up visit with your primary care provider, please call [phone] and ask to be transferred to the [facility] Medicine office. Sincerely, Yadi Dominguez M.D. Total Time Total Time Spent Total Time Spent (In Minutes): 35 minutes Total Time Includes: Examination of the Patient, Discharge Planning and Medication Reconciliation Coding Level of Care Code 03621 INP/OBS DISCH >30 MIN Diagnoses Pyelonephritis N12 Nausea & vomiting R11.2 CARINE (acute kidney injury) N17.9 Hypokalemia due to excessive gastrointestinal loss of potassium E87.6
== END 2025-01-07 18:38 | disposition home or self-care (01) ==
LOC: SUATTDRO → ED 21:26 → 2N 21:26 → SUATTDRO 01-07 02:49 → 2N 01-07 03:58